=== PATIENT | male | born 1975 | race Hispanic/Latino ===

== ENCOUNTER 2018-03-10 01:49 | Emergency (ER) | payer OTHER, SELFPAY | END 2018-03-10 03:09 | disposition home or self-care (01) | LOC: EDH 01:49 | DX: Z02.83 Encounter for blood-alcohol and blood-drug test (principal); V49.88XA Car occupant (driver) (passenger) injured in other specified transport accidents, initial encounter; Y93.89 Activity, other specified; Y92.89 Other specified places as the place of occurrence of the external cause; Y99.8 Other external cause status ==